=== PATIENT | female | born 2005 | race Caucasian/White ===

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

== ENCOUNTER → 2023-10-03 08:50 | Outpatient (BNVA) | payer MEDICAID, SELFPAY | PROVIDERS: PCP Pediatrics Adolescent Medicine; Visit Provider Nurse Practitioner Family | DX: R50.9 Fever, unspecified (principal); R07.0 Pain in throat | CPT/HCPCS: 87071; 87400; 87880 ==

== ENCOUNTER → 2023-12-05 09:18 | Outpatient (BNVA) | payer MEDICAID, SELFPAY | PROVIDERS: PCP Pediatrics Adolescent Medicine; Visit Provider Nurse Practitioner Family | DX: R10.31 Right lower quadrant pain (principal); G43.909 Migraine, unspecified, not intractable, without status migrainosus | CPT/HCPCS: 80053; 81003; 83735; 84443; 85025 ==

== ENCOUNTER → 2023-12-19 11:52 | Outpatient (BNVA) | payer MEDICAID, SELFPAY | PROVIDERS: PCP Pediatrics Adolescent Medicine; Visit Provider Nurse Practitioner Family | DX: R30.0 Dysuria (principal) | CPT/HCPCS: 81003 ==

== ENCOUNTER → 2024-05-10 14:00 | Outpatient (BNVA) | payer MEDICAID, SELFPAY | PROVIDERS: PCP Pediatrics Adolescent Medicine; Visit Provider Pediatrics Adolescent Medicine | DX: R50.9 Fever, unspecified (principal) | CPT/HCPCS: 87400 ==

== ENCOUNTER 2024-06-04 07:31 | Emergency (ER) | payer MEDICAID, SELFPAY ==
[2024-06-04 07:42] VITALS: BP 108/71; PULSE 120; RESP 18; TEMP 36.6; O2SAT 98; BMI 17.4
--- NOTE | 2024-06-04 07:51 | CT_ITS ---
WS: [id number] CT ABDOMEN PELVIS TECHNIQUE: Contrast-enhanced CT of the abdomen and pelvis with coronal and sagittal reformatted image s. CLINICAL INFORMATION: lower abdominal pain COMPARISON: None. DLP: 276.[address] scans at [facility] use at least one of these dose optimization techniques: automated e xposure control; mA and/or kV adjustment per patient size (includes targeted exams where dose is matc hed to clinical indication); or iterative reconstruction. FINDINGS: Lung bases are well aerated. Mild hepatomegaly. Normal spleen. Normal portal vein and splen ic vein. Normal GE junction. Adrenal glands are normal. Normal pancreatic parenchymal enhancement. No rmal caliber abdominal aorta. Celiac and SMA are patent. No hydronephrosis in either kidney. Normal g allbladder. Prominent uterine enhancement with fluid or thickening in the endometrium likely physiologic. Multi f ollicular ovaries bilaterally. Dominant LEFT follicle measuring 1.5 cm. No significant free fluid in the pelvis. No evidence of acute appendicitis. Appendix appears normal. Small amount of induration about the RIGHT colon suspicious for mild infectious or inflammatory colit is. Mild submucosal enhancement involving small bowel loops in the pelvis suspicious for enteritis. Bilateral L5 S1 pars defects with sclerosis. Minimal anterolisthesis L5 on S1. Slight widening of the LEFT pars defect measuring [address]/CT abdomen pelvis w con* [id number] IMPRESSION: 1. Findings suspicious for mild distal small bowel enteritis and RIGHT colitis . 2. Normal appendix. 3. Metadata megaly. 4. Multi follicular ovaries bilaterally. Dominant LEFT follicle measuring 1.5 cm 5. Bilateral L5 S1 pars defects with sclerosis. Minimal anterolisthesis L5 on S1. Slight widening of the LEFT pars defect measuring 3 mm.
--- NOTE | 2024-06-04 07:56 | ED_ITS ---
HPI - Nausea/Vomiting/Diarrhea 2 General: Chief complaint: Nausea/Vomiting/Diarrhea Stated complaint: vomiting Time Seen by Provider: 06/04/24 07:44 History of Present Illness: 18-year-old female presents to the ER [facility] complaint of persistent multiple episodes of nausea vomiting diarrhea nonbloody with generalized abdominal pain located lower abdomen has been ongoing progressively worse since early last night patient reports her brothers been sick with some the same symptoms. She reports that she did have a fever earlier yesterday she denies any cough congestion shortness of breath or any other associated symptoms. Associated nausea: Yes Associated symtoms: Reports fatigue, malaise and nausea; Denies anxiety, change in vision, chest pain, headache(s) or palpitations Related Data Previous Rx's Medication Instructions Recorded albuterol sulfate 90 mcg/actuation 2 puff inhalation Q4H PRN 05/10/24 aerosol inhaler shortness of breath or wheezing #8.5 grams ciprofloxacin HCl 500 mg tablet 500 mg PO Q12H #14 tabs 06/04/24 (Cipro) loperamide 2 mg capsule (Imodium 2 mg PO Q4H PRN loose stool #14 06/04/24 A-D) caps ondansetron 4 mg disintegrating 4 mg PO Q6H PRN nausea and 06/04/24 tablet vomiting #20 tabs Allergies Allergy/AdvReac Type Severity Reaction Status Date / Time shellfish derived Allergy Severe unknown Verified 05/10/24 13:20 fish Allergy unknown Uncoded 05/10/24 13:20 Review of Systems 2 General: Reports: 10 or more systems reviewed and unremarkable except in HPI and below Const: Reports: fever(s), chills, fatigue and malaise Eyes: Denies: change in vision or blurry vision Card: Denies: chest pain or palpitations Resp: Denies: dyspnea or productive cough GI: Reports: abdominal pain, nausea, vomiting and diarrhea : Denies: flank pain Musc: Denies: extremity pain or extremity swelling Skin/Breast: Denies: rash or pruritus Neuro: Denies: headache(s) Psych: Denies: anxiety or depression Hubert/Lymph: Denies: easy bleeding All/Imm: Denies: urticaria, throat swelling or facial swelling PFSH ED 2 PFSH: Medical History Vapes nicotine containing substance Marijuana use Alcohol use Delayed gastric emptying Acute bronchitis Reactive airways dysfunction syndrome Social History Smoking and tobacco/nicotine status: never used tobacco/nicotine Second hand smoke exposure: No Alcohol intake: current Alcohol intake frequency: few times a week Alcohol type: hard liquor Substance/Drug Use: former Caregiver/support person: Yes Lives independently: No Household members: other Details: lives with her grandmother and younger brother Marital status: Single Current occupational status: employed Special martine needs: No Physical Exam 2 Const: COMMON NORMALS: patient oriented x3 and healthy appearing; apparent distress (Patient flat affect appears in mild distress mild dehydrated.) HENMT: COMMON NORMALS: normocephalic and atraumatic HEAD & SCALP: n ormocephalic and atraumatic Eye: COMMON NORMALS: Equal, round and reactive pupils present and EOMs intact bilaterally PUPIL: Yes Equal, round and reactive pupils present Neck/C-Spine: COMMON NORMALS: full ROM, supple and no JVD Lymph: LYMPHATIC: no lymphadenopathy noted Chest: COMMONS NORMALS: normal inspection of the chest and normal palpation of entire chest wall Resp: COMMON NORMALS: normal respiratory effort, No retractions and clear to auscultation bilaterally EFFORT & INSPECTION: Yes able to speak in complete sentences and Yes symmetric chest movement AUSCULTATION: clear to auscultation bilaterally Cardio: COMMON NORMALS: no JVD and regular rhythm; negative for regular rate (Sinus tach in the 115-120 range appreciated) RATE: abnormal rate (Sinus tach in the 115-120 range appreciated) RHYTHM: regular rhythm GI: COMMON NORMALS: Soft to palpation and non-tender; negative for Normal to inspection, nondistended, normoactive bowel sounds present (Pain located lower abdomen nonspecific most located in the suprapubic and r) INSPECTION: Yes normal to inspection PALPATION: Yes Soft to palpation : COMMON NORMALS: Yes no CVA tenderness BLADDER/KIDNEY EXAM: Yes no CVA tenderness Back/Pelvis: COMMON NORMALS: no CVA tenderness Extremity: COMMON NORMALS: normal to inspection and full ROM Neuro: COMMON NORMALS: patient oriented x3, CN's II-XII intact bilaterally, moves all extremities and no focal motor deficits Psych: COMMON NORMALS: mental status grossly normal, Normal thought process present, cooperative and normal affect THOUGHT PROCESS: Normal thought process present Skin: COMMON NORMALS: no rashes or lesions noted GENERAL SKIN EXAM: no rashes or lesions noted Course 2 Vital Signs: Vital signs: Vital Signs Temperature 97.8 F 06/04/24 07:42 Pulse Rate 101 H 06/04/24 10:56 Respiratory Rate 18 06/04/24 07:42 Blood Pressure 105/67 06/04/24 10:56 Pulse Oximetry 98 06/04/24 10:56 Oxygen Delivery Me thod Room Air 06/04/24 08:05 MDM - Nausea/Vomiting/Diarrhea Medical Decision Making Due to patient's symptoms and condition IV will be established IV fluids provided for hydration with lab work and imaging obtained will continue to follow. CT imaging revealed gastroenteritis normal appendix with right colitis patient have a slight white count of 17,000 normal H&H she also was found to have a urinary tract infection which will provide some Rocephin for patient is stable for discharge home advised further follow-up primary care in 3 to 5 days she was started on some antiemetics as well as antibiotics for her UTI, advised for the patient to return the interim if any of her symptoms persist or worse. Lab Data 06/04/24 07:53 06/04/24 07:53 Radiology Impressions Abdomen/Pelvis CT 06/04/24 07:51 IMPRESSION: 1. Findings suspicious for mild distal small bowel enteritis and RIGHT colitis. 2. Normal appendix. 3. Metadata megaly. 4. Multi follicular ovaries bilaterally. Dominant LEFT follicle measuring 1.5 cm 5. Bilateral L5 S1 pars defects with sclerosis. Minimal anterolisthesis L5 on S1. Slight widening of the LEFT pars defect measuring 3 mm. Laboratory Results WBC 17.87 10^3/uL (4.5-13.0) H 06/04/24 07:53 RBC 5.28 10^6/uL (3.85-5.65) 06/04/24 07:53 Hgb 14.90 g/dL (12.4-14.8) H 06/04/24 07:53 Hct 44.5 % (36-47) 06/04/24 07:53 MCV 84.3 fl (85-98) L 06/04/24 07:53 MCH 28.2 pg (27-33) 06/04/24 07:53 MCHC 33.5 g/dL (30-55) 06/04/24 07:53 RDW 12.3 % (12.1-15.1) 06/04/24 07:53 Plt Count 356 10^3/cmm (157-399) 06/04/24 07:53 MPV 8.8 fL (7.4-10.4) 06/04/24 07:53 Neut % (Auto) 94.9 % 06/04/24 07:53 Lymph % (Auto) 2.1 % 06/04/24 07:53 Sullivan % (Auto) 2.4 % 06/04/24 07:53 Eos % (Auto) 0.1 % 06/04/24 07:53 Baso % (Auto) 0.2 % 06/04/24 07:53 Neut # (Auto) 16.97 10^3/uL (1.8-8.0) H 06/04/24 07:53 Lymph # (Auto) 0.4 10^3/uL (1.5-6.5) L 06/04/24 07:53 Sullivan # (Auto) 0.4 10^3/uL (0.2-0.9) 06/04/24 07:53 Eos # (Auto) 0.0 10^3/uL (0.0-0.8) 06/04/24 07:53 Baso # (Auto) 0.0 10^3/uL (0.0-0.1) 06/04/24 07:53 Nucleated RBC % (auto) 0 % 06/04/24 07:53 Nucleated RBCs # 0.0 /100WBC 06/04/24 07:53 Sodium 140 mmol/L (136-145) 06/04/24 07:53 Potassium 4.3 mmol/L (3.5-5.1) 06/04/24 07:53 Chloride 103 mmol/L (98-107) 06/04/24 07:53 Carbon Dioxide 20 mmol/L (22-29) L 06/04/24 07:53 Anion Gap 21.3 (5-19) H 06/04/24 07:53 BUN 17 mg/dL (6-20) 06/04/24 07:53 Creatinine 0.8 mg/dL (0.5-0.9) 06/04/24 07:53 GFR Calculation 91.4 mL/min (90-130) 06/04/24 07:53 Glucose 135 mg/dL (65-115) H 06/04/24 07:53 Calculated Osmolality 294 mOsm/kg (285-295) 06/04/24 07:53 Calcium 9.8 mg/dL (8.5-10.5) 06/04/24 07:53 Total Bilirubin 1.0 mg/dL (0.15-1.2) 06/04/24 07:53 AST 15 U/L (0-32) 06/04/24 07:53 ALT 11 U/L (0-33) 06/04/24 07:53 Alkaline Phosphatase 77 U/L (35-105) 06/04/24 07:53 C-Reactive Protein 7.0 mg/L (0.0-4.9) H 06/04/24 07:53 Total Protein 8.6 g/dL (6.6-8.7) 06/04/24 07:53 Albumin 4.8 g/dL (3.5-5.2) 06/04/24 07:53 Globulin 3.8 g/dL (1.3-4.6) 06/04/24 07:53 Lipase 22 U/L (13-60) 06/04/24 07:53 HCG, Qual Negative (Negative) 06/04/24 08:00 Urine Color Dark yellow (Yellow) A 06/04/24 08:00 Urine Appearance Cloudy (CLEAR) A 06/04/24 08:00 Urine pH 5.5 (5-7) 06/04/24 08:00 Ur Specific Cofield 1.032 (1.005-1.030) H 06/04/24 08:00 Urine Protein 2+ (Negative) A 06/04/24 08:00 Urine Glucose (UA) Negative (Normal) 06/04/24 08:00 Urine Ketones 1+ (Negative) H 06/04/24 08:00 Urine Blood 1+ (Negative) A 06/04/24 08:00 Urine Nitrate Negative (Negative) 06/04/24 08:00 Urine Bilirubin 1+ (Negative) H 06/04/24 08:00 Urine Urobilinogen 1.0 mg/dL (Negative) 06/04/24 08:00 Ur Leukocyte Esterase Trace (Negative) A 06/04/24 08:00 Urine RBC 6-10 /hpf (0-2) 06/04/24 08:00 Urine WBC 21-50 /hpf (0-5) H 06/04/24 08:00 Ur Squamous Epith Cells 21-50 /hpf (0-5) 06/04/24 08:00 Amorphous Sediment Not Reportable 06/04/24 08:00 Urine Bacteria 2+ /hpf (NONE) H 06/04/24 08:00 Hyaline Casts 21.48 /lpf 06/04/24 08:00 Urine Opiates Screen Negative ng/mL (Negative) 06/04/24 08:00 Ur Barbiturates Screen Negative ng/mL (Negative) 06/04/24 08:00 Ur Phencyclidine Scrn Negative ng/mL (Negative) 06/04/24 08:00 Ur Amphetamines Screen Negative ng/mL (Negative) 06/04/24 08:00 U Benzodiazepines Scrn Negative ng/mL (Negative) 06/04/24 08:00 Urine Cocaine Screen Negative ng/mL (Negative) 06/04/24 08:00 U Marijuana (THC) Screen Negative ng/mL (Negative) 06/04/24 08:00 XR interpretation done by ED provider, pending radiology final review Discharge Plan Discharge Patient Disposition: Home Clinical Impression: Gastroenteritis, Nausea vomiting and diarrhea UTI (urinary tract infection) Qualifiers: Urinary tract infection type: acute cystitis Hematuria presence: without hematuria Qualified Code(s): N30.00 - Acute cystitis without hematuria Condition: Stable Prescriptions: New ciprofloxacin HCl [Cipro] 500 mg tablet 500 mg PO Q12H Qty: 14 0RF ondansetron 4 mg tablet,disintegrating 4 mg PO Q6H PRN (Reason: nausea and vomiting) Qty: 20 0RF loperamide [Imodium A-D] 2 mg capsule 2 mg PO Q4H PRN (Reason: loose stool) Qty: 14 0RF Rx Instructions: administer after each loose stool until symptoms controlled; do not exceed 8 mg per 24 hrs No Action albuterol sulfate 90 mcg/actuation HFA aerosol inhaler 2 puff inhalation Q4H PRN (Reason: shortness of breath or wheezing) Qty: 8.5 3RF Discharge Orders: Discharge ED (Routine); Ordered 06/04/24 Ordered By: Lenard Mckeon Referrals: Jen Ocampo MD [Primary Care Provider] - 4-7 days Discharge Diet: Advance as tolerated Discharge Activity: Increase activity as tolerated Patient Instructions: Dehydration (ED), Urinary Tract Infection in Men (ED), Acute Nausea and Vomiting (ED), Acute Diarrhea (ED) Activity Restrictions/Additional Instructions: Take medications as prescribed please further follow-up with primary care in 3 to 5 days in which please return the interim if any of your symptoms persist or worsen. Coding Level of Care Code ED [employer] Services Project Manager for Quan Schneider
[2024-06-04 08:01] LABS: Basophils % 0.2 %; Eosinophils % 0.1 %; Hematocrit 44.5 % (36-47); Lymphocytes # 0.4 10^3/uL (1.5-6.5); Lymphocytes % 2.1 %; Mean Corpuscular HGB Conc 33.5 g/dL (30-55); Mean Corpuscular Hemoglobin 28.2 pg (27-33); Mean Corpuscular Volume 84.3 fl (85-98); Mean Platelet Volume 8.8 fL (7.4-10.4); Monocytes # 0.4 10^3/uL (0.2-0.9); Monocytes % 2.4 %; Neutrophils # 16.97 10^3/uL (1.8-8.0); Neutrophils % 94.9 %; Nucleated Red Blood Cells % 0 %; Platelet Count 356 10^3/cmm (157-399); Red Blood Count 5.28 10^6/uL (3.85-5.65); Red Cell Distribution Width 12.3 % (12.1-15.1); White Blood Count 17.87 10^3/uL (4.5-13.0)
[2024-06-04 08:05] VITALS: BP 108/78; PULSE 121; O2SAT 98
[2024-06-04] MEDS: ondansetron 2 mg/ML SDV 2 mL 4 MG IVP (08:08)
[2024-06-04] MEDS: sodium chloride 0.9% 1,000 ML 999 ML IV (08:08)
[2024-06-04 08:15] LABS: Alanine Aminotransferase 11 U/L (0-33); Albumin Level 4.8 g/dL (3.5-5.2); Alkaline Phosphatase 77 U/L (35-105); Anion Gap 21.3 (5-19); Aspartate Amino Transferase 15 U/L (0-32); Blood Urea Nitrogen 17 mg/dL (6-20); Calcium 9.8 mg/dL (8.5-10.5); Carbon Dioxide 20 mmol/L (22-29); Chloride 103 mmol/L (98-107); Creatinine Clr Calc Pharmacy 80.3463; Globulin 3.8 g/dL (1.3-4.6); Glomerular Filtration Rate 91.4 mL/min (90-130); Glucose 135 mg/dL (65-115); Lipase 22 U/L (13-60); Osmolality Calculated 294 mOsm/kg (285-295); Potassium 4.3 mmol/L (3.5-5.1); Sodium 140 mmol/L (136-145); Total Protein 8.6 g/dL (6.6-8.7)
[2024-06-04 08:15] LABS: Bilirubin Urine 1+ (Negative); Blood Urine 1+ (Negative); Glucose Urine UA Negative (Normal); Ketones Urine 1+ (Negative); Leukocyte Esterase Urine Trace (Negative); Nitrate Urine Negative (Negative); Protein Urine 2+ (Negative); Urine Appearance Cloudy (CLEAR); Urine Color Dark Yellow (Yellow); pH Urine 5.5 (5-7)
[2024-06-04 08:17] LABS: Add Urine Microscopic? YES; Bacteria Urine 2+ /hpf; Hyaline Casts Urine 21.48 /lpf; Squamous Epithelial Cell Urine 21-50 /hpf (0-5); WBC Urine 21-50 /hpf (0-5)
[2024-06-04 08:21] LABS: Amphetamines Screen Urine Negative (Negative); Barbiturates Screen Urine Negative (Negative); Benzodiazepines Screen Urine Negative (Negative); Cocaine Screen Urine Negative (Negative); HCG Qualitative Urine. Negative (Negative); Opiate Screen Urine Negative (Negative); PCP Screen Urine Negative (Negative); THC Screen Urine Negative (Negative)
[2024-06-04 08:29] LABS: Specific Gravity, Urine 1.032 (1.005-1.030)
[2024-06-04 08:30] LABS: UA Slide Review UA Slide Review Perf
[2024-06-04] MEDS: iohexol 350 mg/mL 500 mL Btl (per mL) IV (09:34)
[2024-06-04 09:48] VITALS: PULSE 98; O2SAT 98
--- NOTE | 2024-06-04 10:52 | PC.NURSE ---
Antibiotics delayed d/t this nurse being with another critical pt, short staffed.
[2024-06-04] MEDS: cefTRIAXone 1,000 mg SDV 1000 MG IVP (10:55)
[2024-06-04 10:56] VITALS: BP 105/67; PULSE 101; O2SAT 98
[2024-06-04 11:58] VITALS: BP 113/72; PULSE 102; O2SAT 97
== END 2024-06-04 11:59 | disposition home or self-care (01) ==
PROVIDERS: Emergency Provider Emergency Medicine; PCP Pediatrics Adolescent Medicine
DX: K52.9 Noninfective gastroenteritis and colitis, unspecified (principal); N30.00 Acute cystitis without hematuria
CPT/HCPCS: 74177; 80053; 80306; 81001; 81025; 83690; 85025; 86140; 96374; 96375; 99285; J0696; J2405; J7030

== ENCOUNTER → 2024-11-15 11:26 | Outpatient (BNVA) | payer MEDICAID, SELFPAY | PROVIDERS: PCP Pediatrics Adolescent Medicine; Visit Provider Nurse Practitioner | DX: J06.9 Acute upper respiratory infection, unspecified (principal); J02.9 Acute pharyngitis, unspecified | CPT/HCPCS: 87070; 87486; 87581; 87633; 87880 ==

== ENCOUNTER 2025-02-10 10:52 | Outpatient (CLI) | payer MEDICAID, SELFPAY ==
--- NOTE | 2025-02-10 11:00 | XRR_ITS ---
PROCEDURE INFORMATION: Exam: XR Thoracic Spine Exam date and time: 02/10/2025 11:07 AM Age: 19 years old Clinical indication: Pain in thoracic spine; Additional info: M54.2 - cervicalgia TECHNIQUE: Imaging protocol: Radiologic exam of the thoracic spine. Views: 3 views. COMPARISON: CT abdomen pelvis w con* [id number] 06/04/2024 9:25 AM FINDINGS: Bones/joints: Normal. No acute fracture. Normal alignment. Soft tissues: Unremarkable. XR/XR thoracic spine 3V* [id number] IMPRESSION: No acute findings.
--- NOTE | 2025-02-10 11:00 | XRR_ITS ---
PROCEDURE INFORMATION: Exam: XR Cervical Spine Exam date and time: 02/10/2025 11:07 AM Age: 19 years old Clinical indication: Cervicalgia; Full back pain and migranes x1 mo, pain in back before but getting worse; Additional info: M54.2 - cervicalgia TECHNIQUE: Imaging protocol: Radiologic exam of the cervical spine. Views: 2 or 3 views. COMPARISON: CT facial bones wo con* [id number] 06/23/2022 9:22 AM FINDINGS: Bones/joints: Normal. No acute fracture. Normal alignment. Soft tissues: Unremarkable. XR/XR cervical spine 3V* [id number] IMPRESSION: No acute findings.
--- NOTE | 2025-02-10 11:00 | XRR_ITS ---
PROCEDURE INFORMATION: Exam: XR Lumbosacral Spine Exam date and time: 02/10/2025 11:07 AM Age: 19 years old Clinical indication: Low back pain; Additional info: M54.2 - cervicalgia TECHNIQUE: Imaging protocol: Radiologic exam of the lumbosacral spine. Views: 2 or 3 views. COMPARISON: CT abdomen pelvis w con* [id number] 06/04/2024 9:25 AM FINDINGS: Bones/joints: Pars interarticularis defect L5-S1. Expected lumbar lordosis. No scoliosis. Normal anterior and posterior vertebral body alignment. No acute listhesis. Soft tissues: Unremarkable. XR/XR lumbar spine 2-3V* [id number] IMPRESSION: Pars interarticularis defect L5-S1. No listhesis.
== END 2025-02-10 10:53 | disposition home or self-care (01) ==
LOC: RAD 10:56
PROVIDERS: PCP Nurse Practitioner Family; Visit Provider Nurse Practitioner Family
DX: M54.2 Cervicalgia (principal); M54.9 Dorsalgia, unspecified; G89.29 Other chronic pain
CPT/HCPCS: 72040; 72072; 72100

== ENCOUNTER → 2025-05-10 09:53 | Outpatient (BNVA) | payer MEDICAID, SELFPAY | PROVIDERS: PCP Nurse Practitioner Family; Visit Provider Registered Nurse Neonatal Intensive Care | DX: J02.9 Acute pharyngitis, unspecified (principal) | CPT/HCPCS: 87071; 87880 ==